=== PATIENT | male | born 1960 | race Caucasian/White ===

== ENCOUNTER 2023-01-31 19:31 | Inpatient (IN) | payer OTHER ==
[~2023-01-31] VITALS: Ht 177.8 cm; Wt 76.0 kg
[~2023-01-31 19:31] MED LIST: CARDIZEM60 MG PO; GABAPENTIN600 MG PO; LOPRESSOR50 M1 PO; METHOCARBAMOL500 M1 PO; MORPHINE SULFAT20 M2 PO; OXYCONTIN15 M1 PO
[2023-01-31 19:45] VITALS: BP 120/75
[2023-02-01] VITALS: BP 116/72
[2023-02-01 08:00] VITALS: BP 131/74
[2023-02-01 12:00] VITALS: BP 140/76
[2023-02-01 16:00] VITALS: BP 133/76
[2023-02-02] VITALS: BP 123/75
[2023-02-02 08:00] VITALS: BP 106/72
[2023-02-02 12:00] VITALS: BP 99/75
[2023-02-02 16:00] VITALS: BP 113/83
[2023-02-02 20:00] VITALS: BP 148/89
[2023-02-03] VITALS: BP 121/82
[2023-02-03 08:00] VITALS: BP 140/81
[2023-02-03 12:00] VITALS: BP 138/79
[2023-02-04] VITALS: BP 132/82
[2023-02-04 08:00] VITALS: BP 135/75
[2023-02-04 16:00] VITALS: BP 122/92
[2023-02-04 20:00] VITALS: BP 118/82
[2023-02-05 00:04] VITALS: BP 128/84
[2023-02-05 08:00] VITALS: BP 121/78
[2023-02-05 15:20] VITALS: BP 58/28
== END 2023-02-05 18:00 | DRG 871 ==
LOC: ICCU 19:31
PROVIDERS: ADMIT Internal Medicine; ATTEND Internal Medicine
DX: A41.9 Sepsis, unspecified organism (principal); E43 Unspecified severe protein-calorie malnutrition; J18.9 Pneumonia, unspecified organism; J96.01 Acute respiratory failure with hypoxia; R65.21 Severe sepsis with septic shock; E87.20 Acidosis, unspecified; J95.851 Ventilator associated pneumonia; C15.9 Malignant neoplasm of esophagus, unspecified; Z66 Do not resuscitate; E83.42 Hypomagnesemia; Z51.5 Encounter for palliative care; I48.91 Unspecified atrial fibrillation; E87.6 Hypokalemia; R74.01 Elevation of levels of liver transaminase levels; C14.0 Malignant neoplasm of pharynx, unspecified; L89.326 Pressure-induced deep tissue damage of left buttock; L89.316 Pressure-induced deep tissue damage of right buttock; L89.156 Pressure-induced deep tissue damage of sacral region; L89.526 Pressure-induced deep tissue damage of left ankle; L89.516 Pressure-induced deep tissue damage of right ankle; Z68.23 Body mass index [BMI] 23.0-23.9, adult